=== PATIENT | female | born 1990 | race African-American/Black ===

== ENCOUNTER 2016-09-13 18:38 | Emergency (ER) | payer MEDICAID, OTHER ==
[~2016-09-13] VITALS: Ht 167.6 cm; Wt 73.0 kg
[2016-09-13] MEDS ORDERED: IBUPROFEN 800MG TABLET PO ONE (23:00)
[2016-09-13 23:10] VITALS: BP 122/81
== END 2016-09-14 00:48 | disposition home or self-care (01) ==
LOC: ER 18:38
DX: K08.89 Other specified disorders of teeth and supporting structures (principal); B37.3 Candidiasis of vulva and vagina
CPT/HCPCS: 81025; 99283; J7030

== ENCOUNTER 2017-01-07 13:04 | Emergency (ER) | payer MEDICAID ==
[~2017-01-07] VITALS: Ht 170.2 cm; Wt 70.0 kg
[2017-01-07] MEDS ORDERED: IBUPROFEN 600MG TABLET PO NR (19:00)
[2017-01-07 20:34] VITALS: BP 127/62
== END 2017-01-07 20:37 | disposition home or self-care (01) ==
LOC: ER 17:31
DX: M79.672 Pain in left foot (principal); M25.562 Pain in left knee
CPT/HCPCS: 73560; 73630; 81025; 99284

== ENCOUNTER 2017-03-26 20:35 | Emergency (ER) | payer MEDICAID ==
[~2017-03-26] VITALS: Ht 170.2 cm; Wt 75.0 kg
[2017-03-27 00:48] LABS: CLARITY URINE CLEAR (CLEAR); COLOR URINE YELLOW (YELLOW); GLUCOSE URINE NEGATIVE (NEGATIVE); KETONES URINE NEGATIVE (NEGATIVE); LEUKOCYTE ESTERASE URINE NEGATIVE (NEGATIVE); NITRITE URINE NEGATIVE (NEGATIVE); OCCULT BLOOD URINE NEGATIVE (NEGATIVE); PROTEIN URINE NEGATIVE (NEGATIVE); SPECIFIC GRAVITY URINE 1.036 (1.005-1.030)
[2017-03-27] MEDS: CEFTRIAXONE SODIUM 250 MG/VIAL IM ONE (03:10)
[2017-03-27] MEDS: AZITHROMYCIN 500 MG TABLET PO ONE (03:10)
[2017-03-27] MEDS: LIDOCAINE HCL 1% 20ML VIAL (Pyxis) INJ INFIL ONE (03:10)
[2017-03-27] MEDS: ACETAMINOPHEN 500MG TABLET PO ONE (03:10)
[2017-03-27 03:25] VITALS: BP 106/69
== END 2017-03-27 03:25 | disposition home or self-care (01) ==
LOC: ER 21:08
DX: N72 Inflammatory disease of cervix uteri (principal); N76.0 Acute vaginitis; B96.89 Other specified bacterial agents as the cause of diseases classified elsewhere
CPT/HCPCS: 81003; 81025; 87210; 96372; 99284; J0696; J3490

== ENCOUNTER 2017-11-03 16:52 | Emergency (ER) | payer MEDICAID ==
[~2017-11-03] VITALS: Ht 170.2 cm; Wt 80.0 kg
[2017-11-03] MEDS ORDERED: ACETAMINOPHEN 325MG TABLET PO PRN (17:30)
[2017-11-03 19:18] LABS: BASOPHILS % 0.4 % (0.0-2.0); EOSINOPHILS % 1.9 % (0.0-5.0); HEMOGLOBIN. 13.1 g/dL (12.0-16.0); LYMPHOCYTES % 23.3 % (20.0-50.0); MEAN CORPUSCULAR HEMOGLOBIN 29.6 pg (28.0-32.0); MEAN CORPUSCULAR VOLUME 88.1 fL (81.0-99.0); MONOCYTES % 7.1 % (2.0-8.0); NEUTROPHILS % 67.3 % (40.0-76.0); PLATELET 253 x1000/uL (130-400); RED BLOOD CELL COUNT 4.43 mill/uL (4.2-5.4); RED CELL DISTRIBUTION WIDTH 13.6 % (11.6-14.6)
[2017-11-03 19:20] LABS: CHLORIDE 109 mEq/L (98-107)
[2017-11-03 19:31] LABS: B-HCG QUANTITATIVE < 1 mIU/mL (<3)
[2017-11-03 20:28] VITALS: BP 115/75
== END 2017-11-03 20:30 | disposition home or self-care (01) ==
LOC: ER 16:52
DX: N83.201 Unspecified ovarian cyst, right side (principal)
CPT/HCPCS: 36415; 76830; 76856; 80053; 81025; 84702; 85025; 99285; A4565

== ENCOUNTER 2017-11-22 06:45 | Emergency (ER) | payer MEDICAID ==
[~2017-11-22] VITALS: Ht 170.2 cm; Wt 73.0 kg
[2017-11-22 10:02] VITALS: BP 118/76
[2017-11-22 11:23] LABS: CLARITY URINE CLEAR (CLEAR); COLOR URINE YELLOW (YELLOW); KETONES URINE NEGATIVE (NEGATIVE); LEUKOCYTE ESTERASE URINE 2+ (NEGATIVE); NITRITE URINE NEGATIVE (NEGATIVE); OCCULT BLOOD URINE NEGATIVE (NEGATIVE); PROTEIN URINE NEGATIVE (NEGATIVE); SPECIFIC GRAVITY URINE 1.021 (1.005-1.030)
== END 2017-11-22 12:29 | disposition home or self-care (01) ==
LOC: ER 07:11
DX: N39.0 Urinary tract infection, site not specified (principal); A59.9 Trichomoniasis, unspecified; N76.0 Acute vaginitis
CPT/HCPCS: 81003; 81025; 87077; 87086; 99284

== ENCOUNTER 2018-01-19 03:53 | Emergency (ER) | payer MEDICAID ==
[~2018-01-19] VITALS: Ht 170.2 cm; Wt 73.0 kg
[2018-01-19 04:31] VITALS: BP 120/83
== END 2018-01-19 06:12 | disposition home or self-care (01) ==
LOC: ER 03:53
DX: H10.11 Acute atopic conjunctivitis, right eye (principal)
CPT/HCPCS: 99283

== ENCOUNTER 2018-02-27 23:22 | Emergency (ER) | payer MEDICAID ==
[~2018-02-27] VITALS: Ht 170.2 cm; Wt 73.0 kg
[2018-02-28 01:39] LABS: CLARITY URINE CLOUDY (CLEAR); COLOR URINE DARK YELLOW (YELLOW); KETONES URINE TRACE (NEGATIVE); LEUKOCYTE ESTERASE URINE 2+ (NEGATIVE); NITRITE URINE NEGATIVE (NEGATIVE); OCCULT BLOOD URINE 3+ (NEGATIVE); PH URINE 5.5 (4.5-8.0); PROTEIN URINE 1+ (NEGATIVE); SPECIFIC GRAVITY URINE 1.032 (1.005-1.030)
[2018-02-28 02:32] VITALS: BP 115/63
== END 2018-02-28 02:37 | disposition home or self-care (01) ==
LOC: ER 23:22
DX: N12 Tubulo-interstitial nephritis, not specified as acute or chronic (principal); M54.5 Low back pain; Z87.440 Personal history of urinary (tract) infections
CPT/HCPCS: 81025; 87077; 87186; 99284

== ENCOUNTER 2018-04-12 22:37 | Emergency (ER) | payer MEDICAID ==
[~2018-04-12] VITALS: Ht 170.2 cm; Wt 73.0 kg
[2018-04-12 22:44] VITALS: BP 116/76
== END 2018-04-13 10:00 | disposition left against medical advice (07) ==
LOC: ER 04-13 09:47
DX: R10.84 Generalized abdominal pain (principal); Z53.21 Procedure and treatment not carried out due to patient leaving prior to being seen by health care provider

== ENCOUNTER 2018-05-11 16:18 | Emergency (ER) | payer MEDICAID ==
[~2018-05-11] VITALS: Ht 167.6 cm; Wt 73.0 kg
[2018-05-11] MEDS ORDERED: KETOROLAC 60MG/2ML VIAL IM STA (20:52)
[2018-05-11] MEDS ORDERED: IBUPROFEN 600MG TABLET PO ONE (21:15)
[2018-05-11 21:23] LABS: CLARITY URINE CLEAR (CLEAR); COLOR URINE YELLOW (YELLOW); KETONES URINE 2+ (NEGATIVE); LEUKOCYTE ESTERASE URINE 1+ (NEGATIVE); NITRITE URINE NEGATIVE (NEGATIVE); OCCULT BLOOD URINE 2+ (NEGATIVE); PROTEIN URINE TRACE (NEGATIVE); SPECIFIC GRAVITY URINE 1.036 (1.005-1.030)
[2018-05-11] MEDS ORDERED: AMOXICILLIN 500 MG CAPSULE PO ONE (22:00)
[2018-05-11 23:26] LABS: BASOPHILS % 0.3 % (0.0-2.0); CHLORIDE 107 mEq/L (98-107); EOSINOPHILS % 0.1 % (0.0-5.0); HEMATOCRIT. 42.1 % (36.0-48.0); HEMOGLOBIN. 14.1 g/dL (12.0-16.0); LYMPHOCYTES % 16.4 % (20.0-50.0); MEAN CORPUSCULAR HEMOGLOBIN 29.9 pg (28.0-32.0); MEAN CORPUSCULAR VOLUME 89.2 fL (81.0-99.0); MEAN PLATELET VOLUME 8.1 fl (7.4-10.4); MONOCYTES % 5.8 % (2.0-8.0); NEUTROPHILS % 77.4 % (40.0-76.0); PLATELET 230 x1000/uL (130-400); RED BLOOD CELL COUNT 4.72 mill/uL (4.2-5.4); RED CELL DISTRIBUTION WIDTH 13.2 % (11.6-14.6)
[2018-05-12 04:17] VITALS: BP 126/68
== END 2018-05-12 04:25 | disposition home or self-care (01) ==
LOC: ER 20:52
DX: D25.9 Leiomyoma of uterus, unspecified (principal); N39.0 Urinary tract infection, site not specified; R10.2 Pelvic and perineal pain
CPT/HCPCS: 36415; 74176; 76830; 76856; 80053; 81003; 81025; 85025; 99284; J1885

== ENCOUNTER 2018-05-18 13:09 | Emergency (ER) | payer MEDICAID ==
[~2018-05-18] VITALS: Ht 170.2 cm; Wt 76.0 kg
[2018-05-18 13:36] VITALS: BP 120/82
[2018-05-18] MEDS ORDERED: MECLIZINE 25MG TABLET PO ONE (16:00)
[2018-05-18] MEDS ORDERED: ONDANSETRON HCL 4MG TABLET PO ONE (16:15)
[2018-05-18] MEDS ORDERED: LORAZEPAM 1MG TABLET PO ONE (16:15)
== END 2018-05-18 18:19 | disposition home or self-care (01) ==
LOC: ER 13:09
DX: F41.9 Anxiety disorder, unspecified (principal); H81.10 Benign paroxysmal vertigo, unspecified ear
CPT/HCPCS: 82962; 93005; 99284; Q0162; J8597

== ENCOUNTER 2018-06-02 10:18 | Emergency (ER) | payer MEDICAID ==
[~2018-06-02] VITALS: Ht 170.2 cm; Wt 77.0 kg
[2018-06-02] MEDS ORDERED: HYDROXYZINE 25MG TABLET PO ONE (15:15)
[2018-06-02 16:32] VITALS: BP 140/82
== END 2018-06-02 16:35 | disposition home or self-care (01) ==
LOC: ER 10:23
DX: T36.3X5A Adverse effect of macrolides, initial encounter (principal); D25.9 Leiomyoma of uterus, unspecified; Y92.018 Other place in single-family (private) house as the place of occurrence of the external cause
CPT/HCPCS: 81025; 99283

== ENCOUNTER 2018-06-05 16:52 | Emergency (ER) | payer MEDICAID ==
[~2018-06-05] VITALS: Ht 170.2 cm; Wt 77.0 kg
[2018-06-05] MEDS ORDERED: DIPHENHYDRAMINE 25MG CAPSULE PO ONE (20:30)
[2018-06-05] MEDS ORDERED: METOCLOPRAMIDE HCL 10MG TABLET PO ONE (20:30)
[2018-06-05] MEDS ORDERED: KETOROLAC 60MG/2ML VIAL IM ONE (20:30)
[2018-06-05 21:18] VITALS: BP 128/70
== END 2018-06-05 21:20 | disposition home or self-care (01) ==
LOC: ER 16:52
DX: R51 Headache (principal); Z88.3 Allergy status to other anti-infective agents
CPT/HCPCS: 81025; 96372; 99283; J1885; J8597; Q0163

== ENCOUNTER 2018-06-09 16:51 | Emergency (ER) | payer MEDICAID ==
[~2018-06-09] VITALS: Ht 170.2 cm; Wt 77.0 kg
[2018-06-09 20:29] VITALS: BP 142/88
== END 2018-06-09 20:33 | disposition home or self-care (01) ==
LOC: ER 16:51
DX: T42.4X5A Adverse effect of benzodiazepines, initial encounter (principal); T43.3X5A Adverse effect of phenothiazine antipsychotics and neuroleptics, initial encounter; H83.8X3 Other specified diseases of inner ear, bilateral; F41.9 Anxiety disorder, unspecified; Z88.3 Allergy status to other anti-infective agents; Y92.018 Other place in single-family (private) house as the place of occurrence of the external cause
CPT/HCPCS: 81025; 99282

== ENCOUNTER 2018-06-14 14:51 | Emergency (ER) | payer MEDICAID ==
[~2018-06-14] VITALS: Ht 170.2 cm; Wt 75.0 kg
[2018-06-14 15:11] VITALS: BP 110/87
== END 2018-06-14 17:03 | disposition home or self-care (01) ==
LOC: ER 14:51
DX: H65.191 Other acute nonsuppurative otitis media, right ear (principal); R42 Dizziness and giddiness; F41.9 Anxiety disorder, unspecified; Z88.3 Allergy status to other anti-infective agents
CPT/HCPCS: 99283

== ENCOUNTER 2018-06-15 19:12 | Emergency (ER) | payer MEDICAID ==
[~2018-06-15] VITALS: Ht 170.2 cm; Wt 77.0 kg
[2018-06-15] MEDS ORDERED: ACETAMINOPHEN WITH CODEINE 300/30MG TABLET PO ONE (23:00)
[2018-06-16] MEDS ORDERED: DIPHENHYDRAMINE 25MG CAPSULE PO ONE
[2018-06-16 01:28] VITALS: BP 115/89
== END 2018-06-16 01:33 | disposition home or self-care (01) ==
LOC: ER 21:55
DX: R05 Cough (principal); M54.2 Cervicalgia; Z88.3 Allergy status to other anti-infective agents
CPT/HCPCS: 71045; 81025; 99283; Q0163

== ENCOUNTER 2018-07-03 17:41 | Emergency (ER) | payer MEDICAID ==
[~2018-07-03] VITALS: Ht 165.1 cm; Wt 80.0 kg
[2018-07-03 23:01] VITALS: BP 126/80
== END 2018-07-03 23:04 | disposition home or self-care (01) ==
LOC: ER 17:41
DX: G44.209 Tension-type headache, unspecified, not intractable (principal); F41.9 Anxiety disorder, unspecified; Z88.3 Allergy status to other anti-infective agents; Z88.5 Allergy status to narcotic agent; Z88.6 Allergy status to analgesic agent
CPT/HCPCS: 81025; 99283